=== PATIENT | male | born 1980 | race African-American/Black ===

== ENCOUNTER 2017-04-15 05:24 | Observation (INO) | payer BC ==
[2017-04-15 06:07] LABS: White Blood Cell (WBC) Count 4.1 thou/uL (4.8-10.8)
[2017-04-15 06:08] LABS: #Eosinphils 0.1 thou/uL (0.0-0.7); #Lymphocytes 1.2 thou/uL (1.20-3.40); #Monocytes 0.4 thou/uL (0.11-0.59); #Neutrophils 2.3 thou/uL (1.40-6.50); %Basophils 0.9 % (0.0-1.0); %Eosinophils 3.1 % (0.0-10.0); %Lymphocytes 29.9 % (21.0-51.0); %Monocytes 9.6 % (0.0-10.0); %Neutrophils 56.6 % (42.0-75.0); Hemoglobin 12.9 g/dL (14.0-18.0); Mean Corpuscular HGB CONC 32.8 g/dL (32.0-36.0); Mean Corpuscular Hemoglobin 28.4 pg (27.0-31.0); Mean Corpuscular Volume 86.7 fl (80.0-94.0); Mean Platelet Volume 7.6 fL (7.4-10.4); Platelet Count 262 thou/uL (130-400); RBC Distribution Width 12.4 % (11.5-14.5); Red Blood Cell (RBC) Count 4.53 mill/uL (4.70-6.10)
[2017-04-15 06:20] LABS: PTT 32.5 SEC (22.9-36.1); Prothrombin Time 13.7 SEC (12.0-14.7)
[2017-04-15 06:24] LABS: ALT (SGPT) 15 U/L (8-55); AST (SGOT) 16 U/L (5-34); Albumin 4.4 g/dL (3.5-5.0); Alcohol Less than 10 mg/dL (Less than 10); Alkaline Phosphatase 73 U/L (40-150); Anion Gap 11 mmol/L (10-20); BUN (Urea Nitrogen) 13 mg/dL (8.9-20.6); Bilirubin, Total 0.4 mg/dL (0.2-1.2); Calc. Creatinine Clearance 0 mL/min (70-130); Calcium 9.3 mg/dL (7.8-10.44); Carbon Dioxide 29 mmol/L (22-29); Chloride 104 mmol/L (98-107); Estimated GFR-MDRD 74; Globulin 2.8 g/dL (2.4-3.5); Glucose 150 mg/dL (70-105); Potassium 3.9 mmol/L (3.5-5.1); Protein, Total 7.2 g/dL (6.0-8.3); Sodium 140 mmol/L (136-145)
[2017-04-15] MEDS ORDERED: Fentanyl 100 MCG/2 ML VIAL ONE (06:58)
[2017-04-15 07:47] LABS: Bilirubin Negative (Negative); Blood, Urine Negative (Negative); Clarity CLEAR (Clear); Glucose, Urine (Dipstick) Negative (Negative); Leukocyte Negative (Negative); Nitrite Negative (Negative); Protein, Urine (Dipstick) Negative (Neg-Trace); Specific Gravity, Urine 1.039 (1.002-1.036); Urobilinogen 0.2 mg/dL (0.2-1.0)
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
[2017-04-15] MEDS ORDERED: Ondansetron ODT 4 MG TAB PO PRN (08:42)
[2017-04-15] MEDS ORDERED: Dextrose 50% Abboject 50 ML SYRINGE SLOW IVP PRN (08:42)
[2017-04-15] MEDS ORDERED: Promethazine HCl 25 MG/ML VIAL IM PRN ×2 (08:42)
[2017-04-15] MEDS ORDERED: Acetaminophen 500 MG TAB PO SCH (08:42)
[2017-04-15] MEDS ORDERED: Ondansetron HCl/PF 4 MG/2 ML Vial IVP PRN (08:42)
[2017-04-15] MEDS ORDERED: traMADol HCl 50 MG TAB PO PRN ×2 (08:42)
[2017-04-15] MEDS ORDERED: Cyclobenzaprine 10 MG TAB PO PRN (08:42)
[2017-04-15] MEDS ORDERED: Dextrose 5% in Water 1,000 ML IV PRN (08:42)
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
[2017-04-15] MEDS ORDERED: Famotidine 20 MG TAB PO SCH (09:00)
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
[2017-04-15] MEDS: Sodium Chloride 0.9% 1,000 ML IV SCH ×2 (11:32→19:27)
[2017-04-15 12:04] VITALS: BP 136/85; TEMP 98.1
[2017-04-15] MEDS: Acetaminophen 325 MG TAB PO SCH ×2 (12:23→19:27)
[2017-04-15] MEDS ORDERED: Ibuprofen 800 MG TAB PO SCH (14:00)
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
[2017-04-15 18:50] VITALS: BMI 24.3
[2017-04-15] MEDS ORDERED: Ibuprofen 600 MG TAB PO SCH (22:00)
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
== END 2017-04-15 19:29 | disposition home or self-care (01) ==
LOC: ERS 05:24 → SJJU 09:15
PROVIDERS: ADMIT Surgery; ATTEND Surgery
DX: S42.012A Anterior displaced fracture of sternal end of left clavicle, initial encounter for closed fracture (principal); G89.11 Acute pain due to trauma; S36.899A Unspecified injury of other intra-abdominal organs, initial encounter; V43.52XA Car driver injured in collision with other type car in traffic accident, initial encounter; Y92.410 Unspecified street and highway as the place of occurrence of the external cause
CPT/HCPCS: 71260; 72125; 74177; 80053; 80307; 81003; 85025; 85610; 85730; 86850; 86900; 86901; 96361; 96374; G0378; G0390; J3010

== ENCOUNTER 2023-11-23 14:12 | Outpatient (CLI) | payer OTHER | END 2023-11-23 14:13 | disposition home or self-care (01) | LOC: SCSRAD 14:12 | PROVIDERS: ATTEND Family Medicine | DX: M79.604 Pain in right leg (principal); M79.605 Pain in left leg; M54.30 Sciatica, unspecified side | CPT/HCPCS: 72100 ==